=== PATIENT | female | born 1990 | race Two or more races ===

== ENCOUNTER 2023-09-15 13:56 | Emergency (ER) | payer SELFPAY ==
--- NOTE | ~2023-09-15 | US_ITS ---
EXAMINATION: US OBSTETRICAL ULTRASOUND CLINICAL INFORMATION: Abdominal pain; positive test; question ectopic . COMPARISON: None available. LMP: Uncertain. Gestational age by maternal dates is uncertain. Estimated date of delivery by maternal dates is uncertain. TECHNIQUE: Ultrasound of the maternal pelvis is performed using transabdominal and transvaginal transducers. Transvaginal imaging is performed due to inadequate visualization transabdominally. M-mode Doppler is also performed. FINDINGS: There is a single intrauterine gestational sac with visible yolk sac, embryo/fetus, and cardiac activity. There is no significant subchorionic hemorrhage or hematoma. HR: 134 beats per minute. CRL (crown rump length): 0.72 cm (6 weeks and 5 days +/- 4 days). ASHLEY (estimated date of delivery): 05/05/2024 +/- 4 days. MATERNAL ADNEXA: The right maternal ovary measures 3.0 x 2.0 x 2.7 cm. The right ovary contains a 1.8 x 1.9 x 1.8 cm resorbing corpus luteum cyst. The left maternal ovary measures 2.4 x 1.5 x 1.4 cm. There is no significant maternal adnexal mass. No maternal pelvic ascites. US/US OB pelvic and transvaginal IMPRESSION: 1. Single intrauterine gestation with ultrasound gestational age of 6 weeks and 5 days +/- 4 days. 2. Estimated date of delivery is 05/05/2024 +/- 4 days. 3. No maternal adnexal mass or pelvic ascites.
[2023-09-15 14:23] VITALS: BP 124/65; PULSE 121; RESP 18; TEMP 36.8; O2SAT 100; BMI 21.6
--- NOTE | 2023-09-15 14:25 | ED_ITS ---
HPI - General Adult General Chief complaint: OB Stated complaint: abd pain Time Seen by Provider: 09/15/23 15:53 Source: patient, RN notes reviewed and old records reviewed Mode of arrival: ambulatory History of Present Illness HPI narrative: 33-year-old female with positive home test 2 days ago presenting to the ED complaining of lower abdominal discomfort and nausea. Patient states she is inquiring about how far along she is, LMP in July, states she is irregular. Also reports white/clear vaginal discharge. Denies vomiting, diarrhea, vaginal bleeding, dysuria/hematuria, flank pain. Patient denies concern for STI. Is sexually active w/ male partner Onset (ago): day(s) Related Data Allergies Allergy/AdvReac Type Severity Reaction Status Date / Time No Known Allergies Allergy Verified 09/15/23 14:26 Review of Systems 2 Review of Systems: Constitutional: No Fever, No Chills ENT/Mouth: No Ear Pain, No Nasal Congestion, No Sinus Pain, No Hoarseness, No sore throat, No Rhinorrhea, No Swallowing Difficulty Cardiovascular: No Chest Pain, No SOB Respiratory: No Cough, No Sputum, No Wheezing Gastrointestinal: +Nausea, No Vomiting, No Diarrhea, No Constipation, +Abdominal pain Genitourinary: No Dysuria, No Urinary Frequency, No Hematuria, No Urgency, No Flank Pain, + vaginal bleeding, no vaginal discharge Musculoskeletal: No joint pain, No Myalgias, No Joint Swelling Skin: No Skin Lesions, No rash Neuro: No Weakness Yes all other systems are reviewed and are negative Constitutional: Constitutional: Reports as per [facility] Past Medical History Attestation statement: The following information was validated with the patient. Source: old records reviewed Social History Social History Advance Directives: No Advance Directives Information Provided: Yes Physical Exam ED Vital Signs: Vital Signs - 24 hr 09/15/23 14:23 Temperature 98.2 F Pulse Rate 121 H Respiratory Rate 18 Blood Pressure 124/65 Pulse Oximetry 100 Oxygen Delivery Method Room Air BMI result Body Mass Index 21.6 Const General: cooperative, healthy appearing and no acute distress Orientation/consciousness: patient oriented x3 Limitations: no limitations HENMT Head: Yes normal to inspection and Yes atraumatic Ears: hearing grossly normal bilaterally General nose exam: Normal external nose present Face and sinus: Yes normal facial exam Eyes General: appearance normal, both eyes and all related structures EOM: EOMs intact bilaterally Neck Neck: Yes normal visual inspection and Yes no meningeal signs Resp Effort & Inspection: normal respiratory effort and no respiratory distress Cardio Rate: regular rate GI Inspection: Yes normal to inspection Palpation (GI): Soft to palpation, Tenderness to palpation present (GI) suprapubicly, no guarding and not rigid Other: exam deferred General: Yes no CVA tenderness Back/Spine/Pelvis Back: no CVA tenderness Skin Rashes: no rashes Wounds: no wounds Neuro General: patient oriented x3, tone normal and no meningeal signs Cranial nerves: Yes CN's II-XII intact bilaterally Gait exam (Neuro): Normal gait present Extrem General: Yes normal to inspection Course Course Course Narrative: This is a rapid medical exam: Additional HPI, ROS, PE not included below will be deferred to primary provider. Patient is a 33-year-old Kosovan-speaking female presenting to the emergency department with complaint of lower abdominal pain and nausea. States she took a test two days ago which was positive. She states that she does not wish to proceed with the is wishes to have an . Denies any abnormal vaginal discharge. Has not seen an [employer]. Plan: UA, labs, U/S -1557--labs reassuring. HCG 49,479 -UA negative 1642--US OB pelvic and transvaginal IMPRESSION: 1. Single intrauterine gestation with ultrasound gestational age of 6 weeks and 5 days +/- 4 days. 2. Estimated date of delivery is 05/05/2024 +/- 4 days. 3. No maternal adnexal mass or pelvic ascites. Results discussed with patient including threatened precautions, recommended repeat HCG in 48 hours. Patient was supplied with lab slip. Worrisome signs and symptoms and strict return precautions, and when to return to the emergency department. They verbalized understanding and feel safe for discharge at this time. Medical Decision Making Medical Decision Making [facility] Narrative: 33-year-old female with positive home test 2 days ago presenting to the ED complaining of lower abdominal discomfort and nausea. On exam tachycardic, NAD, nontoxic appearing, abdomen soft with mild suprapubic tenderness, no CVAT. exam deferred by patient, states she will follow-up with her OBGYN. Concern for early vs ectopic vs threatened vs STI. Lower suspicion for ovarian torsion Plan: Labs, UA, pelvic ultrasound Please refer to course for remaining clinical decision making, interpretation of labs/imaging results, and discussions with consultants and/or family members. Differential Diagnosis Differential Diagnoses: The differential diagnosis associated with the presentation includes As above Lab Data MDM Lab Attestation statement: I reviewed the patient's lab results. 09/15/23 14:42 09/15/23 14:42 Labs: Lab Results 09/15/23 Range/Units 14:42 WBC 7.8 (4.8-10.8) X10*3/uL RBC 3.78 L (4.20-5.50) X10*6/uL Hgb 12.0 (12.0-16.0) g/dl Hct 34.9 L (37.0-47.0) % MCV 92.3 (80.0-98.0) fL MCH 31.7 (27.0-33.0) pg MCHC 34.4 (31.0-35.0) g/dl RDW 12.9 (11.0-16.0) % Plt Count 233 (160-400) X10*3/uL MPV 9.3 L (9.4-12.3) fL Immature Gran % (Auto) 0.3 (0.0-0.4) % Neut % (Auto) 61.6 (45-73) % Lymph % (Auto) 31.2 (20-40) % [place] % (Auto) 6.0 (2-11) % Eos % (Auto) 0.4 (0-4) % Baso % (Auto) 0.5 (0-2) % Lymph # (Auto) 2.4 (1.2-4.9) X10*3/uL [place] # (Auto) 0.5 (0.1-1.2) X10*3/uL Eos # (Auto) 0.0 (0.0-0.4) X10*3/uL Baso # (Auto) 0.0 (0.0-0.2) X10*3/uL Abs Immat Gran (auto) 0.02 (0.00-0.03) X10*3/uL Absolute Neuts (auto) 4.8 (2.0-8.3) x10*3/uL Absolute Nucleated RBC 0.000 (0.0-0.012) X10*3/uL Nucleated RBC % (auto) 0.0 (0.0-0.2) /100WBC Sodium 138 (135-145) mmol/L Potassium 4.3 (3.3-5.1) mmol/L Chloride 110 H (96-108) mmol/L Carbon Dioxide 19 L (22-29) mmol/L Anion Gap 13 (12-20) BUN 14 (9-16) mg/dL Creatinine 0.72 (0.5-1.4) mg/dL Estim Creat Clear Calc 100.9 Estimated GFR > 60 Random Glucose 83 (60-115) mg/dL Calcium 10.0 (8.4-10.2) mg/dL Total Bilirubin 0.5 (0.0-1.0) mg/dL AST 16 (5-31) U/L ALT 11 (0-31) U/L Alkaline Phosphatase 43 (39-117) U/L Total Protein 7.5 (6.5-8.0) g/dL Albumin 4.3 (3.5-5.0) g/dL Beta HCG, Quant 55135 mIU/mL Urine Color Yellow Urine Appearance Clear Urine pH 5.0 (5.0-9.0) Ur Specific [place] >= 1.030 H (1.005-1.025) Urine Protein Negative (Neg-Trace) mg/dL Urine Glucose (UA) Negative (Negative) mg/dL Urine Ketones Negative (Negative) mg/dL Urine Blood Negative (Negative) Urine Nitrite Negative (Negative) Ur Leukocyte Esterase Negative (Negative) Radiology Impression Discussion of test interpretation with radiology: I have reviewed the radiologist's reading. External Record Review External record reviewed: Inpatient record, Office record, Outpatient record, Prior outpatient labs, Prior outpatient radiology, Primary care record and Outside ED record Tests considered The following testing was considered but not selected: As above Discharge Plan Discharge Clinical Impression: Abdominal pain in , Early stage of Patient Disposition: Home, Self-Care Instructions: (ED), Abdominal Pain in (ED) Additional Instructions: Your blood work was reassuring. Her beta quant is 49,000, and with your ultrasound is consistent with about 6 weeks gestation. It is important for you to establish care with an OBGYN. Start taking vitamins You should have repeat blood work in 48 hours due to your abdominal pain. [facility] If symptoms persist or worsening of constant unremitting pain, vaginal bleeding/discharge, persistent nausea/vomiting return to the ED Referrals: [facility] [Provider Group] - 2 days [facility] [Outside]
[2023-09-15 14:47] LABS: MANUAL DIFF FLAG NO
[2023-09-15 14:48] LABS: Basophils Percent Auto 0.5 % (0-2); Eosinophils Percent Auto 0.4 % (0-4); Hematocrit 34.9 % (37.0-47.0); Imm Gran Abs Auto 0.02 X10*3/uL (0.00-0.03); Imm Gran Pct Auto 0.3 % (0.0-0.4); Lymphocytes Absolute Auto 2.4 X10*3/uL (1.2-4.9); Lymphocytes Percent Auto 31.2 % (20-40); Mean Corpuscular HGB Conc 34.4 g/dl (31.0-35.0); Mean Corpuscular Hemoglobin 31.7 pg (27.0-33.0); Mean Corpuscular Volume 92.3 fL (80.0-98.0); Mean Platelet Volume 9.3 fL (9.4-12.3); Monocytes Absolute Auto 0.5 X10*3/uL (0.1-1.2); Neutrophils Absolute Auto 4.8 x10*3/uL (2.0-8.3); Neutrophils Percent Auto 61.6 % (45-73); Platelet Count 233 X10*3/uL (160-400); Red Blood Count 3.78 X10*6/uL (4.20-5.50); Red Cell Distribution Width 12.9 % (11.0-16.0); White Blood Count 7.8 X10*3/uL (4.8-10.8)
[2023-09-15 14:51] LABS: Appearance Urine Clear; Color Urine Yellow; Glucose Urine UA Negative (Negative); Leukocyte Esterase Urine Negative (Negative); Nitrite Urine Negative (Negative); Specific Gravity - Urine >= 1.030 (1.005-1.025); Urine Blood Negative (Negative); Urine Ketones Negative (Negative); Urine Protein Negative (Neg-Trace)
[2023-09-15 15:22] LABS: Alanine Aminotransferase 11 U/L (0-31); Albumin Level 4.3 g/dL (3.5-5.0); Alkaline Phosphatase 43 U/L (39-117); Anion Gap 13 (12-20); Aspartate Amino Transferase 16 U/L (5-31); Bilirubin Total 0.5 mg/dL (0.0-1.0); Blood Urea Nitrogen 14 mg/dL (9-16); Carbon Dioxide 19 mmol/L (22-29); Chloride 110 mmol/L (96-108); Creatinine Clr Calc Pharmacy 100.9; Estimated Glomerular Filt Rate > 60; Glucose Random 83 mg/dL (60-115); Potassium 4.3 mmol/L (3.3-5.1); Sodium 138 mmol/L (135-145); Total Protein 7.5 g/dL (6.5-8.0)
[2023-09-15 15:43] LABS: HCG Quantitative 49479 mIU/mL
[2023-09-15 16:45] VITALS: PULSE 109; RESP 14
== END 2023-09-15 17:03 | disposition home or self-care (01) ==
PROVIDERS: Registered Nurse Emergency; Emergency Provider Internal Medicine
DX: O26.891 Other specified pregnancy related conditions, first trimester (principal); R10.30 Lower abdominal pain, unspecified; Z3A.01 Less than 8 weeks gestation of pregnancy
CPT/HCPCS: 36415; 76801; 76817; 80053; 81003; 84702; 85025; 99283

== ENCOUNTER 2024-07-07 10:50 | Emergency (ER) | payer MEDICAID, SELFPAY ==
--- NOTE | ~2024-07-07 | US_ITS ---
EXAMINATION: US OBSTETRICAL ULTRASOUND CLINICAL INFORMATION: Pain. Early . HCG 2966. COMPARISON: 09/15/2023 LMP: 05/30/2024. Gestational age by maternal dates is 5 weeks 3 days. Estimated date of delivery by maternal dates is 03/06/2025. TECHNIQUE: Ultrasound of the maternal pelvis is performed using transabdominal and transvaginal transducers. Transvaginal imaging is performed due to inadequate visualization transabdominally. M-mode Doppler is also performed. FINDINGS: The uterus is anteverted. Uterine echotexture is heterogeneous. There is a single cystic lesion eccentrically located within the endometrium with surrounding decidual reaction. No yolk sac or pole is identified. Mean sac diameter is 0.36 cm consistent with gestational age of 4 weeks 6 days. MATERNAL ADNEXA: The right maternal ovary measures 5.9 x 4.1 x 5.3 cm. Complex cyst measures 5.1 x 4.0 x 4.5 cm. The left maternal ovary measures 2.8 x 0.8 x 2.3 cm. Small free fluid in the pelvis. US/US OB pelvic and transvaginal IMPRESSION: 1. Single intrauterine gestational sac with ultrasound gestational age of 4 weeks 6 days +/- 4 days. Mean sac diameter greater than 25 mm with absent pole is suspicious for failure.
[2024-07-07 11:12] VITALS: BP 121/71; PULSE 83; RESP 17; TEMP 36.3; O2SAT 100; BMI 25.3
--- NOTE | 2024-07-07 11:17 | ED_ITS ---
HPI - General Adult General Chief complaint: Abdominal Pain Stated complaint: abd pain Time Seen by Provider: 07/07/24 11:41 Source: patient Mode of arrival: ambulatory Limitations: no limitations History of Present Illness ED Provider: Jatin Cisse PA-C HPI narrative: 33-year-old female presents to the ER for evaluation of lower abdominal pain, nausea, breast tenderness and dizziness for the last 3 days. She states she is 8 days late for her menstrual cycle. She also reports she has been having some white and yellow vaginal discharge and is concerned about an infection. She denies any vaginal bleeding. She states the lower abdominal pain is cramping in nature and is present when she is angry. She reports having a miscarriage 9 or 10 months ago. That is her only . Her last menstrual cycle was on May 30. She states she stopped her last Depo shots in December in her menstrual cycles have been irregular since then. Her cycle ranges anywhere from 25 to 31 days long. MD complaint: Abdominal pain, vaginal discharge, missed Onset (ago): day(s) (3) Relieving factors: none Exacerbating factors: none Associated symptoms: denies other symptoms Treatments prior to arrival: none Related Data Previous Rx's ?Medication ?Instructions ?Recorded vitamin-ferrous fumarate 1 tab PO DAILY #30 tabs 07/07/24 28 mg iron-folic acid 800 mcg tablet Allergies Allergy/AdvReac Type Severity Reaction Status Date / Time No Known Allergies Allergy Verified 07/07/24 11:18 Review of Systems 2 Review of Systems: Yes all other systems are reviewed and are negative [facility] Social History Social History Advance Directives: No Advance Directives Information Provided: No Do you have a plan to hurt others: No Plan Physical Exam ED Vital Signs: Vital Signs - 24 hr 07/07/24 11:12 07/07/24 14:53 Temperature 97.4 F 98.2 F Pulse Rate 83 88 Respiratory Rate 17 18 Blood Pressure 121/71 125/66 Pulse Oximetry 100 100 Oxygen Delivery Method Room Air Room Air BMI result Body Mass Index 25.3 Appearance: Alert. Oriented X3. No acute distress. Head: normocephalic, atraumatic. Eyes: Pupils equal, round and reactive to light. ENT: Pharynx normal. No tonsillar swelling or exudate. Neck: Normal inspection. Neck supple. CVS: Normal heart rate and rhythm. Pulses normal. Respiratory: No respiratory distress. Breath sounds normal. Abdomen: Soft and nontender. +BS x4 Pelvic: white vaginal discharge at vaginal introitus. vaginal exam w/ moderate amount of white discharge. cervix is closed. no bleeding. no CMT. Skin: Skin warm and dry. Normal skin color. Normal skin turgor. No rashes. Extremities: No lower extremity edema. No joint swelling. Neuro/psych: Oriented X 3. No motor deficit. No sensory deficit. CN II-XII intact. Normal speech and cognition. Course Course Course Narrative: RME performed by Meghna Mac PA-C. Patient is a 33 year old assigned female at presenting to the emergency department with yellow-mac vaginal discharge. Patient states that she is concerned of a vaginal infection because she has been having mild discomfort with yellow-mac drainage. Patient states that she is also wanting to be tested for . Also complaining of a headache and feeling generally unwell. Detailed physical exam and review of systems are deferred to the billing clinician. Labs and swabs ordered. Patient placed back in the waiting room pending room availability and results. Medical Decision Making Medical Decision Making MDM Narrative: 33-year-old female presents to the ER for evaluation of nausea, lower abdominal cramping, dizziness and breast tenderness after she is 8 days late for her menstrual cycle. Urinalysis is positive for . Beta quant was 2966. Pelvic exam showing a closed cervix with moderate amount of white discharge. She tested negative for gonorrhea, chlamydia, yeast, BV, Trichomonas. No need for antibiotics at this time. Ultrasound is showing a 3.6 mm gestational sac with no yolk sac or pole. Initial ultrasound reading had in the impression that a gestational sac >25mm without a pole was suspicious for failure however it was confirmed that her gestational sac is only 3.6 mm at this time after discussion with the radiologist. Case also discussed with Dr. Rosario. She will need repeat ultrasound in 2 weeks. instructor bridge was used to discuss the results and management as well as return precautions including spontaneous precautions. Patient expressed understanding and all questions were answered. Patient stable for discharge home with outpatient follow-up with OBGYN Differential Diagnosis Differential Diagnoses: The differential diagnosis associated with the presentation includes Early , missed , spontaneous , BV, STI Consult Healthcare Provider Management of the patient was discussed with: Customer Service Assistant Dr. Rosario Lab Data MDM Lab Attestation statement: I reviewed the patient's lab results. Mild anemia, normal renal function, elevated test consistent with early 07/07/24 12:09 07/07/24 12:09 Labs: Lab Results 07/07/24 07/07/24 07/07/24 Range/Units 11:32 12:09 14:09 WBC 5.7 (4.8-10.8) X10*3/uL RBC 3.80 L (4.20-5.50) X10*6/uL Hgb 12.3 (12.0-16.0) g/dl Hct 35.2 L (37.0-47.0) % MCV 92.6 (80.0-98.0) fL MCH 32.4 (27.0-33.0) pg MCHC 34.9 (31.0-35.0) g/dl RDW 13.3 (11.0-16.0) % Plt Count 221 (160-400) X10*3/uL MPV 9.4 (9.4-12.3) fL Immature Gran % (Auto) 0.3 (0.0-0.4) % Neut % (Auto) 56.0 (45-73) % Lymph % (Auto) 35.8 (20-40) % [place] % (Auto) 6.1 (2-11) % Eos % (Auto) 0.9 (0-4) % Baso % (Auto) 0.9 (0-2) % Lymph # (Auto) 2.1 (1.2-4.9) X10*3/uL [place] # (Auto) 0.4 (0.1-1.2) X10*3/uL Eos # (Auto) 0.1 (0.0-0.4) X10*3/uL Baso # (Auto) 0.1 (0.0-0.2) X10*3/uL Abs Immat Gran (auto) 0.02 (0.00-0.03) X10*3/uL Absolute Neuts (auto) 3.2 (2.0-8.3) x10*3/uL Absolute Nucleated RBC 0.000 (0.0-0.012) X10*3/uL Nucleated RBC % (auto) 0.0 (0.0-0.2) /100WBC Sodium 138 (135-145) mmol/L Potassium 4.3 (3.3-5.1) mmol/L Chloride 109 H (96-108) mmol/L Carbon Dioxide 23 (22-29) mmol/L Anion Gap 10 L (12-20) BUN 9 (9-16) mg/dL Creatinine 0.78 (0.5-1.4) mg/dL Estim Creat Clear Calc 101.0 Estimated GFR > 60 Random Glucose 94 (60-115) mg/dL Calcium 9.2 D (8.4-10.2) mg/dL Magnesium 2.0 (1.6-2.6) mg/dL Total Bilirubin 0.6 (0.0-1.0) mg/dL Direct Bilirubin 0.2 (0.0-0.5) mg/dL AST 15 (5-31) U/L ALT 12 (0-31) U/L Alkaline Phosphatase 47 (39-117) U/L Total Protein 7.1 (6.5-8.0) g/dL Albumin 4.1 (3.5-5.0) g/dL Beta HCG, Quant 2966 mIU/mL Urine Color Yellow Urine Appearance Clear Urine pH 6.5 (5.0-9.0) Ur Specific [place] 1.020 (1.005-1.025) Urine Protein Negative (Neg-Trace) mg/dL Urine Glucose (UA) Negative (Negative) mg/dL Urine Ketones 80 (Negative) mg/dL Urine Blood Negative (Negative) Urine Nitrite Negative (Negative) Ur Leukocyte Esterase Negative (Negative) Urine Test POSITIVE H (NEGATIVE) Chlam trachomat DNA PCR NOT DETECTED (Not Detect.) Influenza Type A (PCR) NEGATIVE (Negative) Influenza Type B (PCR) NEGATIVE (Negative) N.gonorrhoeae DNA (PCR) NOT DETECTED (Not Detect.) RSV RNA Qual (PCR) NEGATIVE (Negative) SARS-CoV-2 RNA (RT-PCR) NEGATIVE (Negative) T. vaginalis (PCR) NOT DETECTED (Not Detect) Bact Vaginosis (PCR) NEGATIVE (Negative) C. krusei/glabrata (PCR) NOT DETECTED (Not Detect) Lucy group (PCR) NOT DETECTED (Not Detect) Independent Interpretation I performed an independent interpretation of an: Ultrasound Interpretation: Ultrasound with a gestational sac, no pole or heart tone was appreciated, agree with radiology read Radiology Impression Discussion of test interpretation with radiology: I discussed test interpretation with the radiologist and I have reviewed the radiologist's reading. Radiologist Impression: ADDENDUMMean sac diameter of 3.6 mm is likely field representative/health education of an early . No yolk sac seen at this time. Clinical follow-up is recommended. Findings were reviewed and discussed with ELLIOTT Sood at 4:25 PM on 07/07/2024. TD/TT: / EXAMINATION: US OBSTETRICAL ULTRASOUND CLINICAL INFORMATION: Pain. Early . HCG 2966. COMPARISON: 09/15/2023 LMP: 05/30/2024. Gestational age by maternal dates is 5 weeks 3 days. Estimated date of delivery by maternal dates is 03/06/2025. TECHNIQUE: Ultrasound of the maternal pelvis is performed using transabdominal and transvaginal transducers. Transvaginal imaging is performed due to inadequate visualization transabdominally. M-mode Doppler is also performed. FINDINGS: The uterus is anteverted. Uterine echotexture is heterogeneous. There is a single cystic lesion eccentrically located within the endometrium with surrounding decidual reaction. No yolk sac or pole is identified. Mean sac diameter is 0.36 cm consistent with gestational age of 4 weeks 6 days. MATERNAL ADNEXA: The right maternal ovary measures 5.9 x 4.1 x 5.3 cm. Complex cyst measures 5.1 x 4.0 x 4.5 cm. The left maternal ovary measures 2.8 x 0.8 x 2.3 cm. Small free fluid in the pelvis. US/US OB pelvic and transvaginal IMPRESSION: 1. Single intrauterine gestational sac with ultrasound gestational age of 4 weeks 6 days +/- 4 days. Mean sac diameter greater than 25 mm with absent pole is suspicious for failure. Independent Historian Clinical information obtained from an independent historian. History obtained from or confirmed by: Spouse External Record Review External record reviewed: Prior outpatient labs and Prior outpatient radiology Prescription Management I considered prescription management with: Antibiotic Social Determinants Patient?s care significantly limited by Social Determinants of Health including: Other Social Determinant of Health (no OB care) Critical Care Time Critical Care Time Critical Care Time: No Discharge Plan Discharge Clinical Impression: Qualifiers: Weeks of gestation: less than 8 weeks Qualified Code(s): Z3A.01 - Less than 8 weeks gestation of Patient Disposition: Home, Self-Care Instructions: (ED) Additional Instructions: You were found to be today. Your ultrasound is showing very early stage of . You will need to get repeat ultrasound in 2 weeks. You tested negative for gonorrhea, chlamydia, Trichomonas, bacterial vaginosis and yeast Given your pain & cramping there is a chance of possible miscarriage Monitor for worsening pain or development of significant bleeding Recommend following up with OBGYN for repeat ultrasound. Name and number below. Call for an appointment. Start taking vitamins. They were sent to your pharmacy in [place]. If you develop new or worsening symptoms call 911 or come back to the ER for further evaluation. Prescriptions: New vit-iron fum-folic ac 28 mg iron- 800 mcg tablet 1 tab PO DAILY Qty: 30 0RF Referrals: Denis Rosario MD [Physician] - (early ) Print Language: Martiniquais
[2024-07-07 11:47] LABS: UPreg QC Valid YES; Urine Pregnancy POSITIVE (NEGATIVE)
[2024-07-07 11:50] LABS: Appearance Urine Clear; Color Urine Yellow; Glucose Urine UA Negative (Negative); Leukocyte Esterase Urine Negative (Negative); Nitrite Urine Negative (Negative); PH 6.5 (5.0-9.0); Urine Blood Negative (Negative); Urine Ketones 80 mg/dL (Negative); Urine Protein Negative (Neg-Trace)
[2024-07-07 12:16] LABS: MANUAL DIFF FLAG NO
[2024-07-07 12:17] LABS: Basophils Absolute Auto 0.1 X10*3/uL (0.0-0.2); Basophils Percent Auto 0.9 % (0-2); Eosinophils Absolute Auto 0.1 X10*3/uL (0.0-0.4); Eosinophils Percent Auto 0.9 % (0-4); Hematocrit 35.2 % (37.0-47.0); Hemoglobin 12.3 g/dl (12.0-16.0); Imm Gran Abs Auto 0.02 X10*3/uL (0.00-0.03); Imm Gran Pct Auto 0.3 % (0.0-0.4); Lymphocytes Absolute Auto 2.1 X10*3/uL (1.2-4.9); Lymphocytes Percent Auto 35.8 % (20-40); Mean Corpuscular HGB Conc 34.9 g/dl (31.0-35.0); Mean Corpuscular Hemoglobin 32.4 pg (27.0-33.0); Mean Corpuscular Volume 92.6 fL (80.0-98.0); Mean Platelet Volume 9.4 fL (9.4-12.3); Monocytes Absolute Auto 0.4 X10*3/uL (0.1-1.2); Monocytes Percent Auto 6.1 % (2-11); Neutrophils Absolute Auto 3.2 x10*3/uL (2.0-8.3); Platelet Count 221 X10*3/uL (160-400); Red Cell Distribution Width 13.3 % (11.0-16.0); White Blood Count 5.7 X10*3/uL (4.8-10.8)
[2024-07-07 12:39] LABS: Alanine Aminotransferase 12 U/L (0-31); Albumin Level 4.1 g/dL (3.5-5.0); Alkaline Phosphatase 47 U/L (39-117); Anion Gap 10 (12-20); Aspartate Amino Transferase 15 U/L (5-31); Bilirubin Direct 0.2 mg/dL (0.0-0.5); Bilirubin Total 0.6 mg/dL (0.0-1.0); Blood Urea Nitrogen 9 mg/dL (9-16); Calcium 9.2 mg/dL (8.4-10.2); Carbon Dioxide 23 mmol/L (22-29); Chloride 109 mmol/L (96-108); Estimated Glomerular Filt Rate > 60; Glucose Random 94 mg/dL (60-115); HCG Quantitative 2966 mIU/mL; Potassium 4.3 mmol/L (3.3-5.1); Sodium 138 mmol/L (135-145); Total Protein 7.1 g/dL (6.5-8.0)
[2024-07-07 12:42] LABS: Influenza A PCR NEGATIVE (Negative); Influenza B PCR NEGATIVE (Negative); Resp Syncy Virus RNA Qual PCR NEGATIVE (Negative); SARS COV2 PCR INHOUSE NEGATIVE (Negative)
[2024-07-07 13:16] LABS: CT PCR NOT DETECTED (Not Detect.); NG PCR NOT DETECTED (Not Detect.)
[2024-07-07 14:53] VITALS: BP 125/66; PULSE 88; RESP 18; TEMP 36.8; O2SAT 100
[2024-07-07 15:49] LABS: Bacterial Vaginosis PCR NEGATIVE (Negative); Candida Group PCR NOT DETECTED (Not Detect); Candida glab krusei PCR NOT DETECTED (Not Detect); Trichomonas vaginalis PCR NOT DETECTED (Not Detect)
--- NOTE | 2024-07-07 16:28 | P.CONOB_ITS ---
DARKLIGHT INSPECTOR - CN: HPI Data of Consult Consult date: 07/07/24 Primary Care Provider: None Physician Consult Narrative Narrative: I was consulted on Alona Manning who is a 33 year old female presenting to the ER complaining of lower abdominal cramps last 3 days. LMP 05/30/2024 making her by to date at 5 and 3 days of gestation. She denies any vaginal bleeding. HCG done in the emergency room was 2966 cc:: CC: OB [facility] Social History Social History Advance Directives: No Advance Directives Information Provided: No Do you have a plan to hurt others: No Plan Meds Allergies Allergy/AdvReac Type Severity Reaction Status Date / Time No Known Allergies Allergy Verified 07/07/24 11:18 DARKLIGHT INSPECTOR Physical Exam Vitals Vital signs: Temp Pulse Resp BP Pulse Ox O2 Del Method 98.2 F 88 18 125/66 100 Room Air 07/07/24 14:53 07/07/24 14:53 07/07/24 14:53 07/07/24 14:53 07/07/24 14:53 07/07/24 14:53 BMI result Body Mass Index 25.3 Additional Comments: Physical exam reported by Sood PA as the following: Abdomen: Soft and nontender. +BS x4 Pelvic: white vaginal discharge at vaginal introitus. vaginal exam w/ moderate amount of white discharge. cervix is closed. no bleeding. no CMT. DARKLIGHT INSPECTOR - Results Labs 07/07/24 12:09 07/07/24 12:09 Labs: Short CBC 07/07/24 Range/Units 12:09 WBC 5.7 (4.8-10.8) X10*3/uL Hgb 12.3 (12.0-16.0) g/dl Hct 35.2 L (37.0-47.0) % Plt Count 221 (160-400) X10*3/uL BMP 07/07/24 12:09 Sodium 138 Potassium 4.3 Chloride 109 H Carbon Dioxide 23 BUN 9 Creatinine 0.78 Calcium 9.2 D Liver Function 07/07/24 Range/Units 12:09 Total Bilirubin 0.6 (0.0-1.0) mg/dL Direct Bilirubin 0.2 (0.0-0.5) mg/dL AST 15 (5-31) U/L ALT 12 (0-31) U/L Alkaline Phosphatase 47 (39-117) U/L Albumin 4.1 (3.5-5.0) g/dL Urine 07/07/24 Range/Units 11:32 Urine Color Yellow Urine Appearance Clear Urine pH 6.5 (5.0-9.0) Ur Specific [place] 1.020 (1.005-1.025) Urine Protein Negative (Neg-Trace) mg/dL Urine Glucose (UA) Negative (Negative) mg/dL Urine Test POSITIVE H (NEGATIVE) Assessment and Plan (1) Early stage of : Status: Inactive Since the mean gestational sac diameter is 3.6 mm with no pole, I recommended the following: Repeat ultrasound in 2 weeks with a follow-up appointment. SAB warnings to be given to the patient, instructions to be given to patient to call or go to emergency room in case of vaginal bleeding and or pelvic cramping, vitamin 1 tablet p.o. q.d. and to schedule a follow-up in the office in 2 weeks with a repeat ultrasound prior to the appointment, order placed. I spent a total of 20 minutes reviewing the chart, communicating to the emergency room provider and documenting in the medical record
[2024-07-07 16:59] VITALS: BP 106/59; PULSE 73; RESP 16; TEMP 36.8; O2SAT 100
[2024-07-07 17:10] VITALS: BP 106/59; PULSE 73; RESP 16; TEMP 36.8; O2SAT 100
== END 2024-07-07 17:10 | disposition home or self-care (01) ==
PROVIDERS: Physician Assistant; Physician Assistant Medical; Emergency Provider Emergency Medicine Emergency Medical Services
DX: O26.91 Pregnancy related conditions, unspecified, first trimester (principal); R10.2 Pelvic and perineal pain; R11.0 Nausea; R42 Dizziness and giddiness; Z3A.01 Less than 8 weeks gestation of pregnancy; Z03.818 Encounter for observation for suspected exposure to other biological agents ruled out; Z79.899 Other long term (current) drug therapy
CPT/HCPCS: 0241U; 0352U; 36415; 76801; 76817; 80048; 80076; 81003; 81025; 83735; 84702; 85025; 87491; 87591; 99283; 99284

== ENCOUNTER 2024-07-14 15:42 | Outpatient (AMB) | payer MEDICAID, SELFPAY ==
[2024-07-14 15:45] VITALS: BP 114/66; BMI 25.3
--- NOTE | 2024-07-14 15:45 | MHC.OFFVIS ---
Vital Signs 07/14/24 15:45 Height 5 ft 5 in Weight 152 lb 1.903 oz BMI 25.3 BP 114/66 Intake Visit Reasons: ER follow up Tennis Centre Manager Required: Yes Tennis Centre Manager Language: Tripe Washer Services: Tennis Centre Manager Present (in person) Tennis Centre Manager Name: Jenni PAGE Information Interpreted: non-clinical & clinical Shipping Team Leader: Shipping Team Leader Present (Jenni PAGE) Accompanied by: Spouse Allergies No Known Allergies Allergy (Verified 07/14/24 15:53) Patient : Yes HPI Comments Details: The patient is presenting as a follow-up from ER visit on 07/07 when she presented emergency room complaining of lower abdominal cramps of 3 days' duration. LMP 05/30/2024 making her by to date at 6 and 1 days of gestation. The patient is complaining of pelvic cramping /10 on and off over the last few days with no associated vaginal bleeding H&H was 12.3/35.2 HCG 2966 GC/CT with BV panel negative, Trichomonas negative Pelvic ultrasound showed the following: The uterus is anteverted. Uterine echotexture is heterogeneous. There is a single cystic lesion eccentrically located within the endometrium with surrounding decidual reaction. No yolk sac or pole is identified. Mean sac diameter is 0.36 cm consistent with gestational age of 4 weeks 6 days. MATERNAL ADNEXA: The right maternal ovary measures 5.9 x 4.1 x 5.3 cm. Complex cyst measures 5.1 x 4.0 x 4.5 cm. The left maternal ovary measures 2.8 x 0.8 x 2.3 cm. Small free fluid in the pelvis. FOR[facility]LY [facility] Medical History Heart murmur Family History (Updated 07/14/24 @ 15:55 by Jenni Villavicencio CMA) Father HTN (hypertension) Maternal Grandmother Diabetes Brother Asthma Social History Household Members: Spouse Household Members Other:: stepdaughter Housing: Apartment Alcohol intake: current Alcohol intake frequency: holidays/special occasions only Patient Tobacco Use Status: Former Tobacco user Tobacco use type: Cigarette Current occupational status: unemployed Sexual orientation: Straight/Heterosexual Gender identity: Female Female Reproductive History Menstrual Age of Menarche: 14 Date of last menstrual period: 05/31/24 control method: none Total pregnancies: 1 Review of Systems Const All systems reviewed & are unremarkable except as noted in HPI and below Reports as per HPI and Reports no additional complaints GI Reports no additional complaints Reports no additional complaints Physical Exam Vital Signs: BMI result Body Mass Index 25.3 GI Palpation (GI): Soft to palpation, nontender and no guarding Assessment & Plan Assessment & Plan (1) Early stage of : Code(s): Z34.90 - Encounter for supervision of normal , unspecified, unspecified trimester Category: Medical Plan: Discussed with the patient the differential diagnosis of her symptoms including but not limited to ectopic versus SAB. Also explained to the patient that an empty gestational sac could be a pseudo sac which is associated with possible ectopic . Instructions given the patient to go to emergency room stefano to be evaluated to rule out ectopic . All questions answered, the patient verbalized understanding especially the urgency of her clinical situation and agreed with the plan Coding Level of Care Code Est Pt Level 3 (43431) Diagnoses Early stage of Z34.90
== END 2024-07-14 16:27 | disposition home or self-care (01) ==
LOC: HO.HWS 15:42
PROVIDERS: Visit Provider Obstetrics & Gynecology
DX: Z34.90 Encounter for supervision of normal pregnancy, unspecified, unspecified trimester (principal)
CPT/HCPCS: 99213

== ENCOUNTER → 2024-07-14 15:42 | Outpatient (BNVA) | payer MEDICAID, SELFPAY | PROVIDERS: Visit Provider Obstetrics & Gynecology | DX: Z34.91 Encounter for supervision of normal pregnancy, unspecified, first trimester (principal) | CPT/HCPCS: 99212 ==

== ENCOUNTER 2024-10-27 10:45 | Outpatient (AMB) | payer OTHER, SELFPAY ==
--- NOTE | 2024-10-27 11:01 | A.OFFPC_ITS ---
Vital Signs 10/27/24 11:14 Height 5 ft 3.98 in Weight 157 lb 2 oz BMI 27.0 BP 108/62 Blood Pressure Location Lt brachial Position Sitting Pulse 85 Pulse Source Pulse Oximeter Pulse Oximetry (%) 99 Oxygen Delivery Method Room Air Intake Visit Reasons: TAX RECORD CLERK/ Intake Note: New patient visit Drum Operator Required: Yes Drum Operator Language: Tristanian Allergies No Known Allergies Allergy (Verified 10/27/24 11:06) Tobacco use date assessed: 10/27/24 Dental Screening Dental Screen Date: 10/27/24 Did you have a dental visit in the last 12 months?: No Did you have a dental problem in the last 6 months where you did not have access to dental care?: No HPI HPI Comments History of Present Illness0 Details The patient is a 34 year old with a past medical history of mitral valve disorder/heart murmur, current presenting to [facility] care Following with [facility] keel press operator Dr Hastings at [facility]. Currently 19 weeks . No recent echocardiogram. Denies shortness of breath. Treated for bronchitis in August No shortness of breath ROS CONSTITUTIONAL: Denies weight loss, fever and chills. HEENT: Denies changes in vision and hearing. RESPIRATORY: Denies SOB and cough. CV: Denies palpitations and CP GI: Denies abdominal pain, nausea, vomiting and diarrhea. : Denies dysuria and urinary frequency. MSK: Denies new myalgia and joint pain. SKIN: Denies rash and pruritus. NEUROLOGICAL: Denies headache PSYCHIATRIC: Denies recent changes in mood. PHYSICAL EXAM: GENERAL: Alert and oriented x 3. NAD EYES: EOMI. Anicteric. HENT: Moist mucous membranes. No scleral icterus. No cervical lymphadenopathy. LUNGS: Clear to auscultation bilaterally. CARDIOVASCULAR: Regular rate and rhythm. soft murmur ABDOMEN: Soft, non-tender +bs EXTREMITIES: No edema. Non-tender. SKIN: No rashes or lesions. Warm. NEUROLOGIC: No focal neurological deficits. CN II-XII grossly intact PSYCHIATRIC: Cooperative. Appropriate mood and affect FOR[facility]LY [facility] Medical History Heart murmur Family History (Updated 10/27/24 @ 11:11 by Therese Alvarez CMA) Father HTN (hypertension) Maternal Grandmother Diabetes Brother Asthma Maternal Uncle Substance abuse Social History (Updated 10/27/24 @ 11:16 by Therese Alvarez CMA) Household Members: Spouse Household Members Other:: stepdaughter Housing: House (second floor) Alcohol intake: current Alcohol intake frequency: holidays/special occasions only Patient Tobacco Use Status: Never used Tobacco Tobacco use type: Cigarette e-Cigarette/Vaping Use: Never Used Second Hand Smoke Exposure: No Use of substances other than those prescribed or required for medical reasons: No service: No Current occupational status: unemployed Sexual orientation: Straight/Heterosexual Gender identity: Female Cognitive needs: No Hearing needs: No Vision needs: Yes (may need glasses) Female Reproductive History Menstrual Age of Menarche: 14 Questionnaire PHQ-9 Over the last 2 weeks, how often have you been bothered by any of the following problems? 1. Little interest or pleasure in doing things: more than half the days 2. Feeling down, depressed, or hopeless: several days 3. Trouble falling or staying asleep, or sleeping too much: several days 4. Feeling tired or having little energy: several days 5. Poor appetite or overeating: several days 6. Feeling bad about yourself - or that you are a failure or have let yourself or your family down: several days 7. Trouble concentrating on things, such as reading the newspaper or watching television: not at all 8. Moving or speaking so slowly that other people could have noticed. Or the o pposite - being so fidgety or restless that you have been moving around a lot more than usual: not at all 9. Thoughts that you would be better off or of hurting yourself in some way: not at all Total score: 7 Depression Screening Interpretation: Positive Depression Screening Follow-up: Declines treatment Depression Screening Done: Yes 93569 - PHQ-9 Billing: Yes Source: Developed by Drs. Samir Genao, Anjana Adorno, Felix Loo and colleagues, with an educational ned from [employer]. Thrive Questionnaire Date Thrive assessed: 10/27/24 I am a: Patient What is your living situation today?: I have a steady place to live Within the past 12 months, did the food you bought not last and you didn't have the money to get more?: I choose not to answer this question Within the past 12 months, did you worry whether your food would run out before you got money to buy more?: I choose not to answer this question Do you have trouble paying for medicines?: No Do you have trouble getting transportation to medical appointments?: No Do you have trouble paying your heating and electricity bill?: No Do you have trouble taking care of your child, family member or friend?: No Do you have trouble with day-to-day activities such as bathing, preparing meals, shopping, managing finances, etc.?: No Are you currently unemployed and looking for a job?: Yes Are you interested in more education?: Yes Please select the resources that you would like help with: Transportation Currently or been in a relationship where the following occur: No concerns reported THRIVE Score: 0 AUDIT C Alcohol Use Questionnaire (AUDIT-C) 1. How often do you have a drink containing alcohol?: Never 3. How often do you have six or more drinks on one occasion?: Never Total Score: 0 GEMINI-7 AMB Questionnaire GEMINI-7 Date GEMINI - 7 assessed: 10/27/24 Feeling nervous, anxious, or on edge: 1 = Several days Not being able to stop or control worryin = Several days Worrying too much about different things: 1 = Several days Trouble relaxin = Several days Being so restless that it is hard to sit still: 1 = Several days Becoming easily annoyed or irritable: 1 = Several days Feeling afraid as if something awful might happen: 1 = Several days Total GEMINI-7 score (0-4 normal; 5-9 mild; 10-14 moderate; 15-21 severe): 7 Source: Developed by Drs. Samir Genao, Anjana Adorno, Felix Loo and colleagues, with an educational ned from [employer]. GEMINI-7 Assessment Billing GEMINI-7 Assessment Tool: GEMINI-7 Assessment 86760 Physical exam (Primary Care) Vital Signs: Last Vital Signs Pulse 85 10/27/24 11:14 BP 108/62 10/27/24 11:14 Pulse Ox 99 10/27/24 11:14 Oxygen Delivery Method Room Air 10/27/24 11:14 BMI result Body Mass Index 27.0 Tobacco/Smoking Status: Tobacco use Status Tobacco use date assessed 10/27/24 10/27/24 11:16 Patient Tobacco Use Status Never used Tobacco 10/27/24 11:16 Tobacco use type Cigarette 10/27/24 11:16 e-Cigarette/Vaping Use Never Used 10/27/24 11:16 PHQ-9: PHQ-9 Score PHQ-9: Total score 7 10/27/24 11:17 Depression Screening Interpretation: Positive Depression Screening Follow-up: Declines treatment Thrive Assessment: Date of Thrive Assessment Date Thrive assessed 10/27/24 10/27/24 11:16 Currently or been in a relationship where the following occur: No concerns reported Coding Level of Care Code New Pt Level 4 (28290) Diagnoses Encounter to establish care Z76.89 Mitral valve insufficiency, unspecified etiology I34.0 Cardiac valve disease etiology: etiology unspecified Additional Codes GEMINI-7 Assessment Billing - GEMINI-7 Assessment Tool: GEMINI-7 Assessment 39527 ([id number]) PHQ-9 - 73934 - PHQ-9 Billing: Yes ([id number]) Assessment & Plan Assessment & Plan (1) Encounter to establish care: Code(s): Z76.89 - Persons encountering health services in other specified circumstances Category: Medical Plan: 34 year old to establish care. past medical, surgical, social and family history reviewed History of MV disorder. Echo ordered (2) Mitral valve regurgitation: Code(s): I34.0 - Nonrheumatic mitral (valve) insufficiency Category: Medical Qualifiers: Cardiac valve disease etiology: etiology unspecified Qualified Code(s): I34.0 - Nonrheumatic mitral (valve) insufficiency Plan: echo ordered Orders: Orders CA echo transthoracic complete Today I34.0 - Nonrheumatic mitral (valve) insufficiency, Z3A.01 - Less than 8 weeks gestation of
[2024-10-27 11:14] VITALS: BP 108/62; PULSE 85; O2SAT 99; BMI 27.0
== END 2024-10-27 15:06 | disposition home or self-care (01) ==
PROVIDERS: PCP Internal Medicine; Visit Provider Internal Medicine
DX: Z76.89 Persons encountering health services in other specified circumstances (principal); I34.0 Nonrheumatic mitral (valve) insufficiency

== ENCOUNTER → 2024-10-27 10:45 | Outpatient (BNVA) | payer OTHER, SELFPAY | PROVIDERS: PCP Internal Medicine; Visit Provider Internal Medicine | DX: Z76.89 Persons encountering health services in other specified circumstances (principal); I34.0 Nonrheumatic mitral (valve) insufficiency | CPT/HCPCS: 96127; 99202 ==

== ENCOUNTER → 2024-11-07 13:53 | Outpatient (REF) | payer OTHER, SELFPAY ==
--- NOTE | 2024-11-07 13:56 | CA_ITS ---
Transthoracic Echocardiogram Patient (Last, First, Middle): Alona Chapa, Gender: Female Date of : 1990 Age: 34 Procedure Date: 11/07/2024 Procedure Type: Transthoracic Echocardiogram Location: OP Height: 165.1 cm Weight: 74.84 kg BSA: 1.82 m2 Heart Rate: bpm Air Traffic Coordinator: BONG Referring MD: Lindsey Melara MD Director Emergency Services: Corky Choi MD Symptoms: I34.0 Non Rheumatic Mitral Valve Insufficiency Study Quality: Good ECG Rhythm: Sinus Conclusions: - Normal study Findings Left Ventricle Normal left ventricular size, thickness, and systolic function. The visually estimated ejection fraction is between 60-65%. Diastolic function is normal for age. Right Ventricle Normal right ventricular cavity size and systolic function. Atria Both atria are normal in size. There is no evidence of interatrial shunt. Aortic Valve Normal aortic valve structure and function. There is no aortic valve stenosis. There is no aortic valve regurgitation. Mitral Valve Normal mitral valve structure and function. There is trace mitral valve regurgitation. There is no mitral valve stenosis. Pulmonic Valve The pulmonic valve is likely normal. There is trace pulmonic valve regurgitation. Tricuspid Valve Normal tricuspid valve structure. There is trace tricuspid valve regurgitation. The right ventricular systolic pressure is normal. The right ventricular systolic pressure is 15 mmHg. Normal right atrial pressure. There is no evidence of pulmonary hypertension. Great Vessels All visible segments of the aorta are normal in size. The visualized portions of the pulmonary artery and branches are normal. Venous The inferior vena cava is normal in size and collapses greater than 50% with inspiration. Pericardium/Pleural There is no evidence of pericardial effusion. Prior Study Comparison No prior study available for comparison. Measurements 2D Linear Measurements IVSd: 0.99 0.6-0.9/0.6-1.0 cm LVIDd: 4.81 3.9-5.3/4.2-5.9 cm LVIDd Index: 2.64 2.4-3.2/2.2-3.1 cm/m2 LVIDs: 2.78 2.0-3.6 cm LVPWd: 0.96 0.7-1.1 cm Ao Root: 2.60 2.1-3.5 cm LA Diam: 3.70 2.7-3.8/3.0-4.0 cm LAIDs Index: 2.03 1.5-2.3 cm/m2 LV Mass: 205.96 67-162/88-224 g LV Mass Index: 113.17 43-95/49-115 g/m2 LVOT Diam: 2.10 3.0+(-)1.3 cm 2D Systolic Function EF 4C: 59.50 >55% EF 2C: 58.20 >55% EF BiP: 58.80 >55% Mitral Valve MV Pk E: 0.90 MV PK A: 0.63 MV Decel Time: 261.00 E/A: 1.40 E'Lateral: 18.30 E'Medial: 11.60 E/E' Med: 7.80 E/E' Lat: 4.90 PHT: 76.00 MVA PHT: 2.89 Decel [place]: 3.47 Aortic Valve AoV Pk Ed: 1.36 AoV Pk Grad: 7.00 LVOT LVOT Pk Ed: 1.05 LVOT Mn Ed: 0.64 LVOT VTI: 0.24 LVOT Pk Grad: 4.00 LVOT Mn Grad: 2.00 LVOT Diam: 2.10 LVOT Area: 3.46 Diastolic Function MV Pk E: 0.90 MV Pk A: 0.63 E/A: 1.40 E'Medial: 11.60 E/E' Med: 7.80 E' Laterial: 18.30 E/E' Lat: 4.90 Right Ventricle TAPSE (mm): 28.00 TVS' Ed: 13.00 Tricuspid Valve TR Pk Ed: 1.70 TR Pk Grad: 12.00 RA Press: 3.00 RVSP: 15.00 Great Vessels Aorta Ao Root-2D: 2.60 2.0-3.7 cm Ao Asc: 2.80 2.1-3.4 cm Pulmonary Valve PV Pk Ed: 1.21 Peak PV Grad: 6.00 Updated in Other Vendor System with Status of Final Corky Choi MD electronically signed on 11/08/2024 3:36:05 PM with status of Final
== END ==
LOC: HO.CARD 13:53
PROVIDERS: PCP Internal Medicine; Visit Provider Internal Medicine
DX: I34.0 Nonrheumatic mitral (valve) insufficiency (principal)
CPT/HCPCS: 93306

== ENCOUNTER → 2024-11-07 13:56 | Outpatient (BNV) | payer OTHER, SELFPAY | PROVIDERS: PCP Internal Medicine; Visit Provider Internal Medicine Cardiovascular Disease | DX: I34.0 Nonrheumatic mitral (valve) insufficiency (principal) | CPT/HCPCS: 93306 ==

== ENCOUNTER 2025-01-09 13:23 | Outpatient (AMB) | payer OTHER, SELFPAY ==
--- NOTE | 2025-01-09 13:34 | A.OFFPC_ITS ---
Vital Signs 01/09/25 13:36 Height 5 ft 4 in Weight 175 lb 8 oz BMI 30.1 BP 90/62 Blood Pressure Location Rt brachial Position Sitting Respiration 12 Pulse 88 Pulse Source Pulse Oximeter Pulse Oximetry (%) 97 Oxygen Delivery Method Room Air Intake Visit Reasons: EKG and Assessment Intake Note: Discuss EKG Ammunition Storekeeper Required: Yes Ammunition Storekeeper Language: Director Hospice Operations Name: Genaro [id number] Allergies No Known Allergies Allergy (Verified 01/09/25 13:35) Tobacco use date assessed: 01/09/25 Dental Screening Dental Screen Date: 10/27/24 HPI HPI Comments History of Present Illness Details The patient is a 34 year old female with a past medical history of mitral valve disorder/heart murmur, current presenting.Video crime analyst used. -bilateral arms intermittently go numb. Sometimes happens down to the middle fingers. Is having neck pain which is new. No specific triggering event. -Intermittent shortness of breath. Incre ases with eating and when she exerts herself too much. She is currently . No calf pain, swelling. Had echo 2 months ago -reassuring. Following with [facility]ower [facility] Hastings at [facility]. ROS see HPI PHYSICAL EXAM: GENERAL: Alert and oriented x 3. NAD EYES: EOMI. Anicteric. HENT: Moist mucous membranes. No scleral icterus. No cervical lymphadenopathy. LUNGS: Clear to auscultation bilaterally. CARDIOVASCULAR: Regular rate and rhythm. soft murmur ABDOMEN: Soft, non-tender +bs EXTREMITIES: No edema. Non-tender. SKIN: No rashes or lesions. Warm. NEUROLOGIC: No focal neurological deficits. CN II-XII grossly intact PSYCHIATRIC: Cooperative. Appropriate mood and affect FOR[facility]LY [facility], [facility] Medical History Heart murmur Family History Father HTN (hypertension) Maternal Grandmother Diabetes Brother Asthma Maternal Uncle Substance abuse Social History Household Members: Spouse Household Members Other:: stepdaughter Housing: House (second floor) Alcohol intake: current Alcohol intake frequency: holidays/special occasions only Patient Tobacco Use Status: Never used Tobacco Tobacco use type: Cigarette e-Cigarette/Vaping Use: Never Used Second Hand Smoke Exposure: No service: No Current occupational status: unemployed Sexual orientation: Straight/Heterosexual Gender identity: Female Cognitive needs: No Hearing needs: No Vision needs: Yes (may need glasses) Female Reproductive History Menstrual Age of Menarche: 14 Questionnaire PHQ-9 Over the last 2 weeks, how often have you been bothered by any of the following problems? 1. Little interest or pleasure in doing things: several days 2. Feeling down, depressed, or hopeless: several days 3. Trouble falling or staying asleep, or sleeping too much: several days 4. Feeling tired or having little energy: several days 5. Poor appetite or overeating: several days 6. Feeling bad about yourself - or that you are a failure or have let yourself or your family down: more than half the days 7. Trouble concentrating on things, such as reading the newspaper or watching television: more than half the days 8. Moving or speaking so slowly that other people could have noticed. Or the opposite - being so fidgety or restless that you have been moving around a lot more than usual: nearly every day 9. Thoughts that you would be better off or of hurting yourself in some way: several days Total score: 13 Depression Screening Interpretation: Positive Depression Screening Follow-up: Declines treatment Depression Screening Done: Yes 66508 - PHQ-9 Billing: Yes Source: Developed by Drs. Samir Genao, Anjana Adorno, Felix Loo and colleagues, with an educational ned from [employer]. Thrive Questionnaire Date Thrive assessed: 01/02/25 I am a: Patient What is your living situation today?: I choose not to answer this question Within the past 12 months, did the food you bought not last and you didn't have the money to get more?: I choose not to answer this question Within the past 12 months, did you worry whether your food would run out before you got money to buy more?: I choose not to answer this question Do you have trouble paying for medicines?: No Do you have trouble getting transportation to medical appointments?: No Do you have trouble paying your heating and electricity bill?: No Do you have trouble taking care of your child, family member or friend?: No Do you have trouble with day-to-day activities such as bathing, preparing meals, shopping, managing finances, etc.?: No Are you currently unemployed and looking for a job?: Yes Are you interested in more education?: Yes Please select the resources that you would like help with: Housing/Detention, Food, Transportation and Job search/training Currently or been in a relationship where the following occur: I choose not to answer THRIVE Score: 0 AUDIT C Alcohol Use Questionnaire (AUDIT-C) 1. How often do you have a drink containing alcohol?: Never 3. How often do you have six or more drinks on one occasion?: Never Total Score: 0 GEMINI-7 AMB Questionnaire GEMINI-7 Date GEMINI - 7 assessed: 01/09/25 Feeling nervous, anxious, or on edge: 1 = Several days Not being able to stop or control worryin = Several days Worrying too much about different things: 1 = Several days Trouble relaxin = Several days Being so restless that it is hard to sit still: 1 = Several days Becoming easily annoyed or irritable: 1 = Several days Feeling afraid as if something awful might happen: 1 = Several days Total GEMINI-7 score (0-4 normal; 5-9 mild; 10-14 moderate; 15-21 severe): 7 Source: Developed by Drs. Samir Genao, Anjana Adorno, Felix Loo and colleagues, with an educational ned from [employer]. GEMINI-7 Assessment Billing GEMINI-7 Assessment Tool: GEMINI-7 Assessment 03293 Physical exam (Primary Care) Vital Signs: Last Vital Signs Pulse 88 01/09/25 13:36 Resp 12 01/09/25 13:36 BP 90/62 01/09/25 13:36 Pulse Ox 97 01/09/25 13:36 Oxygen Delivery Method Room Air 01/09/25 13:36 BMI result Body Mass Index 30.1 Tobacco/Smoking Status: Tobacco use Status Tobacco use date assessed 01/09/25 01/09/25 13:39 Patient Tobacco Use Status Never used Tobacco 01/09/25 13:39 Tobacco use type Cigarette 01/09/25 13:39 e-Cigarette/Vaping Use Never Used 01/09/25 13:39 PHQ-9: PHQ-9 Score PHQ-9: Total score 13 01/11/25 13:29 Depression Screening Interpretation: Positive Depression Screening Follow-up: Declines treatment Thrive Assessment: Date of Thrive Assessment Date Thrive assessed 01/02/25 01/09/25 13:39 Currently or been in a relationship where the following occur: I choose not to answer Coding Level of Care Code Est Pt Level 5 (72019) Diagnoses Shortness of breath R06.02 Neuropathy of upper extremity, unspecified laterality G56.90 Laterality: unspecified laterality Additional Codes GEMINI-7 Assessment Billing - GEMINI-7 Assessment Tool: GEMINI-7 Assessment 52705 ([id number]) PHQ-9 - 78169 - PHQ-9 Billing: Yes ([id number]) Time Spent (min) 55 Assessment & Plan Assessment & Plan (1) Shortness of breath: Code(s): R06.02 - Shortness of breath Category: Medical Plan: ekg reassuring. vitals reassuring. likely secondary to normal physiologic changes of (2) Upper extremity neuropathy: Code(s): G56.90 - Unspecified mononeuropathy of unspecified upper limb Category: Medical Qualifiers: Laterality: unspecified laterality Qualified Code(s): G56.90 - U nspecified mononeuropathy of unspecified upper limb Plan: bilateral, some neck pain. Discussed stretching, muscle relaxer at night as needed for moderate/severe symptoms Orders: Orders IRON PROFILE 01/09/25 G56.90 - Unspecified mononeuropathy of unspecified upper limb, R00.0 - Tachycardia, unspecified, R06.02 - Shortness of breath Comprehensive Met. Panel 01/09/25 G56.90 - Unspecified mononeuropathy of uns pecified upper limb, R00.0 - Tachycardia, unspecified, R06.02 - Shortness of breath Vitamin B12 and Folate 01/09/25 G56.90 - Unspecified mononeuropathy of unspecified upper limb Complete Blood Count Auto Diff 01/09/25 G56.90 - Unspecified mononeuropathy of unspecified upper limb, R00.0 - Tachycardia, unspecified, R06.02 - Shortness of breath TSH reflex Free T4 01/09/25 G56.90 - Unspecified mononeuropathy of unspecified upper limb, R00.0 - Tachycardia, unspecified, R06.02 - Shortness of breath Hemoglobin A1c 01/09/25 G56.90 - Unspecified mononeuropathy of unspecified upper limb
--- OUTSIDE RECORDS SUMMARY | 2025-01-09 13:35 | XMS_ITS ---
Author Organization [facility] Address [address] [place] [id number] Care Team Providers Care Relay Dispatcher Name Role Phone [facility] Primary Care Provi ciaran Unavailable [facility], [facility] Unavailable [phone] Iris Bosch Unavailable [phone] REASON FOR VISIT Call [employer] to change MH Limited to MHSTD / Pregenate Encounters Encounter Location Date Provider Diagnosis [address] [phone] 08/12/2024 Iris Bosch Plan Of Treatment No Information Progress Notes * Alona HOFFMANNDOB:[birth year] (34 yo F)Acc No.[id number]:08/12/2024 Case Management New Patient:?Lili HOFFMANN stacy Provider:?Iris Bosch :1990???Age:34 Y???Sex:Female D ate:08/12/2024 Address:[address] [place], [place] [id number] Pcp:[facility] Rebekah ntjuanita Subjective: * Chief Complaints: * ???1. Call [employer] to ch sergio MH Limited to MHSTD / Pregenate. * HPI: ???Social Service:?Action Taken?[employer]? Called [employer] with client and changed MH Limited to MHSTD due to client receiving a Social Security number. MHSTD will be updated within 48 hours. 08/12/24 gd2.? Objective: * Vitals:? Assessment: Plan: * Treatment: * Billing Information: * Visit Code:? * Procedure Codes:? Care Plan Details* * Sign off status: Completed true * Provider:Beto Bosch Date:?08/12/2024 Generated for Galina walton/Cheng/Dian on:?01/09/2025 01:35 PM EST History and Physical Notes * HPI (History of Present Illness) Category Sub-Category Detail Notes Social Service Action Taken [facility] : Called [facility] ealt with client and changed MH Limited to MHSTD due to client receiving a Social Security number. MHSTD will be updated within 48 hours. 08/12/24 gd2
--- OUTSIDE RECORDS SUMMARY | 2025-01-09 13:35 | XMS_ITS | Patient Health Record ---
Author Organization [facility] Address [address], [place] [phone] Care Team Providers Care Furnace Clerk Name Role Phone [facility] Care Provi ciaran Unavailable [facility], [facility] Unavailable [phone] Iris Bosch Unavailable [phone] Reason For Referral No Information Encounters Encounter Location Date Provider Diagnosis [facility] [address] [place] [address] 01/17/2024 Iris Bosch [facility] [address], [place] [phone] 08/12/2024 Iris Bosch Plan Of Treatment No Information Insurance Providers Payer Name Payer Address Payer Phone Subscriber Number Group Number Insured Name Patient Relationship to Insured Coverage Start Date Coverage End Date [place] [address] [place] [phone] [id number] Alona Chapa Self - patient is the insured
--- OUTSIDE RECORDS SUMMARY | 2025-01-09 13:35 | XMS_ITS ---
Author Organization [facility] Address [address] [place], [place] [phone] Care Team Providers Care Medical Biller Coder Name Role Phone [facility] Primary Care Provi ciaran Unavailable [facility], [facility] Unavailable [phone] Iris Bosch Unavailable [phone] REASON FOR VISIT Apply for [employer] Insurance Encounters Encounter Location Date Provider Diagnosis [facility] [address] [place] [address] 01/17/2024 Iris Bosch Plan Of Treatment No Information Progress Notes * Alona HOFFMANNDOB:[birth year] (33 yo F)Acc No.[id number]:01/17/2024 Case Management New Patient:?Leif NigelTorigayathri stacy Provider:?Iris Bosch :1990???Age:33 Y???Sex:Female D ate:01/17/2024 Address:[address] [place], [place] [id number] Pcp:[facility] nter Subjective: * Chief Complaints: * ???1. Apply for [facility] Insurance. * HPI: ???Social Service:?Action Taken?[employer]? [employer] paper application was completed with client and faxed over to [facility]ment [facility]. 01/17/24 gd2.? Objective: Assessment: Plan: * Treatment: * Images: Billing Information: * Visit Code:? * Procedure Codes:? Care Plan Details* * Sign off status: Completed true * Provider:Beto Bosch Date:?01/17/2024 Generated for Galina walton/Faxing/eTransmitting on:?01/09/2025 01:35 PM EST History and Physical Notes * HPI (History of Present Illness) Category Sub-Category Detail Notes Social Service Action Taken [facility] : [employer] p aper application was completed with client and faxed over to Enrollment [facility]. 01/17/24 gd2
[2025-01-09 13:36] VITALS: BP 90/62; PULSE 88; RESP 12; O2SAT 97; BMI 30.1
== END 2025-01-09 14:19 | disposition home or self-care (01) ==
PROVIDERS: PCP Internal Medicine; Visit Provider Internal Medicine
DX: R06.02 Shortness of breath (principal); G56.90 Unspecified mononeuropathy of unspecified upper limb

== ENCOUNTER → 2025-01-09 13:23 | Outpatient (BNVA) | payer OTHER, SELFPAY | PROVIDERS: PCP Internal Medicine; Visit Provider Internal Medicine | DX: G56.90 Unspecified mononeuropathy of unspecified upper limb (principal); R06.02 Shortness of breath; R00.0 Tachycardia, unspecified | CPT/HCPCS: 96127; 99212 ==

== ENCOUNTER 2025-01-09 14:21 | Outpatient (REF) | payer OTHER, SELFPAY ==
[2025-01-09 17:55] LABS: MANUAL DIFF FLAG NO
[2025-01-09 17:58] LABS: Basophils Percent Auto 0.4 % (0-2); Eosinophils Absolute Auto 0.1 X10*3/uL (0.0-0.4); Hematocrit 33.9 % (37.0-47.0); Hemoglobin 11.4 g/dl (12.0-16.0); Imm Gran Abs Auto 0.05 X10*3/uL (0.00-0.03); Imm Gran Pct Auto 0.7 % (0.0-0.4); Lymphocytes Absolute Auto 1.6 X10*3/uL (1.2-4.9); Lymphocytes Percent Auto 23.3 % (20-40); Mean Corpuscular HGB Conc 33.6 g/dl (31.0-35.0); Mean Corpuscular Hemoglobin 32.2 pg (27.0-33.0); Mean Corpuscular Volume 95.8 fL (80.0-98.0); Mean Platelet Volume 10.3 fL (9.4-12.3); Monocytes Absolute Auto 0.4 X10*3/uL (0.1-1.2); Monocytes Percent Auto 6.3 % (2-11); Neutrophils Absolute Auto 4.6 x10*3/uL (2.0-8.3); Neutrophils Percent Auto 68.3 % (45-73); Platelet Count 230 X10*3/uL (160-400); Red Blood Count 3.54 X10*6/uL (4.20-5.50); Red Cell Distribution Width 13.9 % (11.0-16.0); White Blood Count 6.7 X10*3/uL (4.8-10.8)
[2025-01-09 18:10] LABS: Estimated Average Glucose 94 mg/dL; Hemoglobin A1C 89.3996 umol/L; Hemoglobin A1c % 4.9 % (<6.0); Total Hemoglobin (HGBA1C) 3000.2146 umol/L
[2025-01-09 18:20] LABS: Alanine Aminotransferase 9 U/L (0-31); Albumin Level 3.1 g/dL (3.5-5.0); Alkaline Phosphatase 114 U/L (39-117); Anion Gap 11 (12-20); Aspartate Amino Transferase 21 U/L (5-31); Bilirubin Total 0.2 mg/dL (0.0-1.0); Blood Urea Nitrogen 10 mg/dL (9-16); Calcium 8.7 mg/dL (8.4-10.2); Carbon Dioxide 21 mmol/L (22-29); Chloride 107 mmol/L (96-108); Estimated Glomerular Filt Rate > 60; Glucose Random 85 mg/dL (60-115); Iron 82 mcg/dL (30-160); Percent Iron Saturation 20 % (15-50); Potassium 3.7 mmol/L (3.3-5.1); Sodium 135 mmol/L (135-145); Total Iron Binding Capacity 413 mcg/dL (228-428); Total Protein 6.7 g/dL (6.5-8.0); Unsaturated Iron Binding 331 ug/dL
[2025-01-09 18:37] LABS: TSH reflex Free T4 0.98 uIU/mL (0.32-4.0)
[2025-01-09 18:42] LABS: Folate 16.6 ng/mL (> or = 4.0); Vitamin B12 221 pg/mL (200-900)
== END 2025-01-09 14:22 | disposition home or self-care (01) ==
LOC: HO.WFDLDS 14:21
PROVIDERS: Visit Provider Internal Medicine
DX: R06.02 Shortness of breath (principal); R00.0 Tachycardia, unspecified; G56.90 Unspecified mononeuropathy of unspecified upper limb
CPT/HCPCS: 36415; 80053; 82607; 82746; 83036; 83540; 84443; 85025

== ENCOUNTER 2025-02-02 19:53 | Emergency (ER) | payer OTHER, SELFPAY ==
--- NOTE | 2025-02-02 20:21 | ED_ITS ---
HPI - Abdominal Pain General Chief Complaint: General Medical Stated Complaint: abd pain,headache, edc 03/07 Time Seen by Provider: 02/02/25 20:33 Source: patient Mode of arrival: ambulatory Limitations: no limitations History of Present Illness ED Provider: Dr. Saba Hylton HPI narrative: Patient comes to the emergency room stating that she is ?8 months? . Patient states that she has been having abdominal pain, nausea headache generalized malaise. Patient states that she has a OBGYN care in [place]. Patient states that this is her 2nd , had a previous spontaneous miscarriage. Patient states that she has been having cramp like sensations intermittently throughout the day. Patient states that she called her clinic and they asked her to come to the emergency room to get evaluated. Patient denies any vaginal bleeding or spotting. Patient states that she has a clear discharge that is new Related Data Previous Rx's ?Medication ?Instructions ?Recorded vitamin-ferrous fumarate 1 tab PO DAILY #30 tabs 07/07/24 28 mg iron-folic acid 800 mcg tablet vitamins no.144-folic 2 tab PO DAILY 90 days #180 tabs 07/10/24 acid 400 mcg chewable tablet Allergies Allergy/AdvReac Type Severity Reaction Status Date / Time No Known Allergies Allergy Verified 02/02/25 20:30 Review of Systems Review of Systems Constitutional : No Weight loss, No Fever, No Chills, No Night Sweats, No Fatigue, No Malaise ENT/Mouth : No Hearing loss, No Ear Pain, No Nasal Congestion, No Sinus Pain, No Hoarseness, No sore throat, No Rhinorrhea, No Swallowing Difficulty Eyes: No Eye Pain, No Swelling, No Redness, No Foreign Body, No Discharge, No Vision Changes Cardiovascular : No Chest Pain, No SOB, No Dyspnea on Exertion, No Orthopnea, No Edema, No Palpitations Respiratory : No Cough, No Sputum, No Wheezing, No Smoke Exposure, No Dyspnea Gastrointestinal : Patient complaining of nausea No Vomiting, No Diarrhea, No Constipation, No abdominal Pain, No Hematochezia, No Melena Genitourinary : Denies vaginal bleeding or spotting, complaining of intermittent cramping/contraction like pain in lower abdomen Musculoskeletal : No joint pain, No Myalgias, No Joint Swelling Skin : No Skin Lesions, No rash Neuro : No Weakness, No Numbness, No Paresthesias, No Loss of Consciousness, No Dizziness, complaining of Headache Psych : Complaining of anxiety, No Depression, No SI/HI/AH/VH, No Social Issues, Heme/Lymph: No Bruising, No Bleeding,No Lymphadenopathy Endocrine : No Polyuria, No Polydipsia, No Temperature Intolerance [facility] Past Medical History Medical History Heart murmur Family History Family History Father HTN (hypertension) Maternal Grandmother Diabetes Brother Asthma Maternal Uncle Substance abuse Social History Social History Household Members: Spouse Household Members Other:: stepdaughter Housing: House (second floor) Alcohol intake: current Alcohol intake frequency: holidays/special occasions only Patient Tobacco Use Status: Never used Tobacco Tobacco use type: Cigarette e-Cigarette/Vaping Use: Never Used Second Hand Smoke Exposure: No Do you have a plan to hurt others: No Plan service: No Current occupational status: unemployed Sexual orientation: Straight/Heterosexual Gender identity: Female Cognitive needs: No Hearing needs: No Vision needs: Yes (may need glasses) Physical Exam ED Vital Signs: Vital Signs - 24 hr 02/02/25 20:27 Temperature 98.3 F Pulse Rate 102 H Respiratory Rate 16 Blood Pressure 119/74 Pulse Oximetry 99 Oxygen Delivery Method Room Air BMI result Body Mass Index 28.2 Const Other: Appearance: Alert. Oriented X3. No acute distress. Eyes: Pupils equal, round and reactive to light. ENT: Pharynx normal. Neck: Normal inspection. Neck supple. No lymph nodes noted. No crepitus CVS: Normal heart rate and rhythm. Pulses normal. Normal S1 and S2 Respiratory: No respiratory distress. Breath sounds normal. No Wheezing. No rales Abdomen: Soft and nontender. No rigidity. Gravid uterus well above the umbilicus Pelvic exam: (patient eloped before he could be done) Skin: Skin warm and dry. Normal skin color. Normal skin turgor. Extremities: No lower extremity edema. No Lacerations. No Rash Neuro: Oriented X 3. No motor deficit. No sensory deficit. Moving all extremities. No slurred speech. CN 2 through 12 grossly intact Psych: calm, cooperative, normal affect Course Course Course Narrative: This is a Rapid Medical Examination (RME) performed by Wendi Berrios PA-C in triage. Full HPI, ROS, assessment and treatment plan per primary provider in the Main ED. 34 yo 8 mo ASHLEY 03/07/25 here w/ intermittent abdominal cramping, nausea, headache since 0900 this morning. cramping comes/ goes. having white v aginal discharge. follows w/ OB in [place]. states bladder feels full Patient immediately brought back to ED bed Plan: labs/ viral swabs Medical Decision Making Medical Decision Making MDM Narrative: I discussed with the patient that we need to get labs work done, insert an IV line, get fluids, nausea medication, pain meds and do a cervical exam to make sure that the cervix is not open. Also patient complaining of cervical discharge, patient aware that we will do serology swabs for STDs, bacterial vaginosis/Trichomonas. I also discussed with the patient that we will do a bedside ultrasound to check for activity and cardiac activity. Also, I discussed with the patient that she will need to be transferred to [facility] for nonstress test. When I went to get the ultrasound for a bedside ultrasound in the tech went to get the materials for the pelvic exam, we noted the patient was not in the room. We checked in all the bathrooms, patient was not there. We called the patient to herself own, patient states that she left the hospital, patient states that she prefers to wait for her PCP tomorrow. Patient states that she has no ride from [place] if we would transfer. I asked the patient to come back to the emergency department for evaluation. I discussed with the patient that we need to rule out preeclampsia, infection , labor, or any abnormality with the fetus. Discussed with the patient that we do not have any information regarding her status at this time. She may have a life- threatening condition for her and the or the baby. I discussed with the patient that we can figure out how to help her with the transfer. However, patient states that she is feeling better now and does not want to come back to the ED, verbalize that she understands the above-mentioned and states that if anything changes she will return to the emergency room. Otherwise she will follow-up tomorrow with her OBGYN. Critical Care Time Critical Care Time Critical Care Time: Yes Total Critical Care Time: 30 Attestation: Please follow-up with your primary care physician tomorrow. If you have any worsening or new symptoms, please return to the emergency room or call 911 Discharge Plan Discharge Clinical Impression: Abdominal cramping affecting , Nausea, Headache Patient Disposition: Left W/O Completing Treatment Prescriptions: No Action no.144-folic acid 400 mcg tablet,chewable 2 tab PO DAILY 90 Days Qty: 180 1RF vit-iron fum-folic ac 28 mg iron- 800 mcg tablet 1 tab PO DAILY Qty: 30 0RF Print Language: Swiss
[2025-02-02 20:27] VITALS: BP 119/74; PULSE 102; RESP 16; TEMP 36.8; O2SAT 99; BMI 28.2
--- NOTE | 2025-02-02 21:02 | PC.NURSE ---
this RN arrives to pt's room to start assessment, give meds and start an IV, no pt was not in the room, searched ED. pt not found, called pt's phone. she states that she left the ED and she will wait for her doctor's appointment tomorrow to be see. MD Hylton spoke with pt on the phone as well to reiterate the importance of labs and being seen in the ED, pt refused
--- NOTE | 2025-02-02 21:03 | PC.NURSE ---
RN and Tech went into room to draw labs and set up pelvic exam per MD request. pt found to not be in room. This RN called patient private cell phone to ask if she left the department. pt is british speaking only, MD Hylton spoke with the patient on the phone and patient said that she has an OB appt in the morning that she is going to attend instead. She was informed that if her situation changes or anything worsens then she should seek attention at [facility]. pt agreeable on phone with
== END 2025-02-02 21:17 | disposition left against medical advice (07) ==
LOC: HO.ED 21:18
PROVIDERS: Emergency Provider Emergency Medicine; PCP Internal Medicine
DX: O26.899 Other specified pregnancy related conditions, unspecified trimester (principal); R10.9 Unspecified abdominal pain; R11.0 Nausea; R51.9 Headache, unspecified; Z3A.00 Weeks of gestation of pregnancy not specified
CPT/HCPCS: 99281

== ENCOUNTER 2025-04-02 09:49 | Outpatient (AMB) | payer OTHER, SELFPAY ==
--- NOTE | 2025-04-02 09:58 | MHC.PC.OV ---
Vital Signs 04/02/25 10:07 Height 5 ft 5 in Weight 157 lb 4 oz BMI 26.2 BP 112/68 Blood Pressure Location Lt brachial Position Sitting Pulse 94 Pulse Source Pulse Oximeter Temp 98.6 F Temp Source Temporal Artery Scan Pulse Oximetry (%) 98 Oxygen Delivery Method Room Air Intake Visit Reasons: CPE /LABS Intake Note: Alona presents in the office today for her annual physical and to go over her labs. Allergies No Known Allergies Allergy (Verified 04/02/25 10:00) Tobacco use date assessed: 04/02/25 Dental Screening Dental Screen Date: 04/02/25 Did you have a dental visit in the last 12 months?: Yes Did you have a dental problem in the last 6 months where you did not have access to dental care?: No Was dental information given to patient?: Patient has dentist HPI HPI Comments History of Present Illness Details 34-year-old female with past medical history of mitral valve regurgitation presents for a physical exam. She is a patient of Dr. Melara. Telugu video electric tripper machine operator used. Patient recently went into the hospital to give to her 1st child. Her water broke. They were planning on vaginal delivery, but she was examined and found to have suspected genital herpes outbreak. They had to switch to an emergency . It was extremely stressful for the patient. She has no history of genital herpes or prior outbreaks. Her does not have a history of this either. Patient says they did a swab which confirmed genital herpes and so she had to stay in the hospital with her infant for 2 weeks so they could monitor the baby and test for herpes. She was treated with Valtrex which she completed. Her baby is doing well. She is processing the diagnosis. Her is doing the same. He is supportive. She has a therapist, and she says she is doing okay now. I asked about her Tdap status. Patient says she was given an immunization during , and she thinks it was Tdap. Gynecology is [facility] in [place]. ROS: Constitutional: No unexplained weight loss, fever, chills, fatigue or night sweats. Eyes: No vision changes, blurry vision, double vision, eye pain, eye redness, eye discharge. ENT: No hearing loss, sneezing, congestion, runny nose or sore throat. Respiratory: No shortness of breath, cough or sputum production. Cardiovascular: No chest pain, chest pressure or chest discomfort. No palpitations or pedal edema. Gastrointestinal: No anorexia, nausea, vomiting or diarrhea. no blood in stool. Mild discomfort around the scar. Genitourinary: No dysuria, hematuria, urinary frequency. Neurologic: No headache, dizziness, syncope, unilateral weakness, ataxia, numbness or tingling in the extremities. Musculoskeletal: No muscle pain, back pain, joint pain or swelling. Hematologic/Lymphatics: No bleeding or bruising. No painful lymph nodes. Skin: Genital herpes rash resolved. Endocrine: No cold or heat intolerance. No polyuria or polydipsia. Psychiatric: No depression or anxiety. No SI/HI. Physical exam: Constitutional: Alert, in no distress. Head: Normocephalic. Eyes: Pupils are equal, round and reactive to light. Extraocular muscles intact. Ear, Nose and Throat: Canals clear. TMs normal. Normal nasal mucosa. No nasal discharge. No oral lesions. Neck: Supple, Full range of motion. No lymphadenopathy. No palpable thyroid masses. Respiratory: Clear to auscultation. Cardiovascular: S1 S2 regular. No murmurs. Gastrointestinal: Abdomen soft, non-tender, non-distended. Normal bowel sounds. No palpable masses. Genitourinary: No costovertebral angle tenderness. Neurologic: No focal neurological deficits. Symmetric patellar reflexes. Moves all extremities spontaneously. Sensation intact bilaterally. Skin: Steri-Strips placed over scar from on the abdomen. No wound dehiscence, discharge, erythema, swelling. Musculoskeletal: No gross deformities. Normal range of motion. Extremities: Warm and well perfused. No clubbing, cyanosis or edema. Intact peripheral pulses. Psychiatric: Normal mood and affect [facility] Medical History (Updated 04/03/25 @ 16:50 by ELLIOTT Carlson) Routine physical examination Genital herpes Heart murmur Family History Father HTN (hypertension) Maternal Grandmother Diabetes Brother Asthma Maternal Uncle Substance abuse Social History (Updated 04/02/25 @ 10:03 by Zari Granado MA) Household Members: Spouse Household Members Other:: stepdaughter Housing: House (second floor) Alcohol intake: current Alcohol intake frequency: holidays/special occasions only Patient Tobacco Use Status: Never used Tobacco Tobacco use type: Cigarette e-Cigarette/Vaping Use: Never Used Second Hand Smoke Exposure: No service: No Current occupational status: unemployed Sexual orientation: Straight/Heterosexual Gender identity: Female Cognitive needs: No Hearing needs: No Vision needs: Yes (may need glasses) Female Reproductive History Menstrual Age of Menarche: 14 Questionnaire PHQ-9 Over the last 2 weeks, how often have you been bothered by any of the following problems? 1. Little interest or pleasure in doing things: not at all 2. Feeling down, depressed, or hopeless: not at all 3. Trouble falling or staying asleep, or sleeping too much: several days 4. Feeling tired or having little energy: several days 5. Poor appetite or overeating: not at all 6. Feeling bad about yourself - or that you are a failure or have let yourself or your family down: not at all 7. Trouble concentrating on things, such as reading the newspaper or watching television: not at all 8. Moving or speaking so slowly that other people could have noticed. Or the opposite - being so fidgety or restless that you have been moving around a lot more than usual: not at all 9. Thoughts that you would be better off or of hurting yourself in some way: not at all Total score: 2 Depression Screening Interpretation: Negative Depression Screening Done: Yes 09301 - PHQ-9 Billing: Patient declined-do not bill Source: Developed by Drs. Samir Genao, Anjana Adorno, Felix Loo and colleagues, with an educational ned from [employer]. Thrive Questionnaire Date Thrive assessed: 04/02/25 I am a: Patient What is your living situation today?: I choose not to answer this question Within the past 12 months, did the food you bought not last and you didn't have the money to get more?: I choose not to answer this question Within the past 12 months, did you worry whether your food would run out before you got money to buy more?: I choose not to answer this question Do you have trouble paying for medicines?: No Do you have trouble getting transportation to medical appointments?: No Do you have trouble paying your heating and electricity bill?: No Do you have trouble taking care of your child, family member or friend?: No Do you have trouble with day-to-day activities such as bathing, preparing meals, shopping, managing finances, etc.?: No Are you currently unemployed and looking for a job?: Yes Are you interested in more education?: Yes Currently or been in a relationship where the following occur: I choose not to answer THRIVE Score: 0 AUDIT C Alcohol Use Questionnaire (AUDIT-C) 1. How often do you have a drink containing alcohol?: Monthly or less 2. How many drinks containing alcohol do you have on a typical day when you are drinking?: 1 or 2 3. How often do you have six or more drinks on one occasion?: Never Total Score: 1 Score Reviewed/Action Taken: No GEMINI-7 AMB Questionnaire GEMINI-7 Date GEMINI - 7 assessed: 04/02/25 Feeling nervous, anxious, or on edge: 1 = Several days Not being able to stop or control worryin = Several days Worrying too much about different things: 1 = Several days Trouble relaxin = Not at all Being so restless that it is hard to sit still: 0 = Not at all Becoming easily annoyed or irritable: 0 = Not at all Feeling afraid as if something awful might happen: 0 = Not at all Total GEMINI-7 score (0-4 normal; 5-9 mild; 10-14 moderate; 15-21 severe): 3 Source: Developed by Drs. Samir Genao, Anjana Adorno, Felix Loo and colleagues, with an educational ned from [employer]. GEMINI-7 Assessment Billing GEMINI-7 Assessment Tool: GEMINI-7 Assessment 14449 Physical exam (Primary Care) Vital Signs: Last Vital Signs Temp 98.6 F 04/02/25 10:07 Pulse 94 04/02/25 10:07 BP 112/68 04/02/25 10:07 Pulse Ox 98 04/02/25 10:07 Oxygen Delivery Method Room Air 04/02/25 10:07 BMI result Body Mass Index 26.2 Tobacco/Smoking Status: Tobacco use Status Tobacco use date assessed 04/02/25 04/02/25 10:12 Patient Tobacco Use Status Never used Tobacco 04/02/25 10:03 Tobacco use type Cigarette 04/02/25 10:03 e-Cigarette/Vaping Use Never Used 04/02/25 10:03 PHQ-9: PHQ-9 Score PHQ-9: Total score 2 04/02/25 10:35 Depression Screening Interpretation: Negative Thrive Assessment: Date of Thrive Assessment Date Thrive assessed 04/02/25 04/02/25 10:12 Currently or been in a relationship where the following occur: I choose not to answer Coding Level of Care Code Est Pt Prev Care 18-39y([id number]) Diagnoses Genital herpes A60.00 Routine physical examination Z00.00 Additional Codes GEMINI-7 Assessment Billing - GEMINI-7 Assessment Tool: GEMINI-7 Assessment 83162 ([id number]) Assessment & Plan Assessment & Plan (1) Genital herpes: Code(s): A60.00 - Herpesviral infection of urogenital system, unspecified Category: Medical Plan: I spent time today reviewing the diagnosis with the patient and how genital herpes is contracted. Her is going to pursue an appointment with his primary care provider for a similar conversation and to review testing available. The outbreak resolved on Valtrex. We discussed if she has recurrent outbreak she should contact the office or her speech writer for Valtrex, and if she has frequent outbreaks she can consider suppressive dosing. She would like to have testing for STIs which I offered today. Orders placed. (2) Routine physical examination: Code(s): Z00.00 - Encounter for general adult medical examination without abnormal findings Category: Medical Plan: Patient is seen today for a routine physical. As part of this visit we reviewed the following issues, which are considered and essential part of preventative health in this age group: - Breast Cancer screening - Annual Associate Data Scientist exam - Blood pressure screening - Cholesterol screening - Osteoporosis prevention including calcium/vitamin D intake, weight bearing exercise & smoking cessation - Nutritional and exercise counseling - Counseling of injury prevention including fire prevention, smoke alarms and seat belt usage - Screening for depression - Prevention of and/or testing for infectious diseases - Education about skin cancer - Recommendations about immunizations - Recommendation of an eye exam - Screening for substance abuse Plan Return for physical in 1 year. Orders: Orders Syphilis Screen 04/02/25 R06.02 - Shortness of breath, Z20.2 - Contact with and (suspected) exposure to infections with a predominantly sexual mode of transmission Lipid Panel 04/02/25 E78.5 - Hyperlipidemia, unspecified, R06.02 - Shortness of breath Hepatitis C Antibody 04/02/25 R06.02 - Shortness of breath, Z20.2 - Contact with and (suspected) exposure to infections with a predominantly sexual mode of transmission HIV Ab/Ag 04/02/25 R06.02 - Shortness of breath, Z20.2 - Contact with and (suspected) exposure to infections with a predominantly sexual mode of transmission CT NG by PCR 04/02/25 Z20.2 - Contact with and (suspected) exposure to infections with a predominantly sexual mode of transmission
[2025-04-02 10:07] VITALS: BP 112/68; PULSE 94; TEMP 37; O2SAT 98; BMI 26.2
--- OUTSIDE RECORDS SUMMARY | 2025-04-02 10:41 | XMS_ITS | Patient Health Record ---
Author Organization [facility] Address [address], [place] [id number] Care Team Providers Care Nurse Intern Name Role Phone [facility] Provi ciaran Unavailable [facility] Unavailable [phone] Iris Bosch Unavailable [phone] Reason For Referral No Information Encounters Encounter Location Date Provider Diagnosis [facility] [address], [place] [id number] 08/12/2024 Iris Bosch Plan Of Treatment No Information Insurance Providers Payer Name Payer Address Payer Phone Subscriber Number Group Number Insured Name Patient Relationship to Insured Coverage Start Date Coverage End Date [place] [address] [place] [address] [id number] Alona Chapa Self - patient is the insured 4
== END 2025-04-02 11:05 | disposition home or self-care (01) ==
LOC: HO.HMCFM 09:50
PROVIDERS: PCP Internal Medicine; Visit Provider Physician Assistant Medical
DX: A60.00 Herpesviral infection of urogenital system, unspecified (principal); Z00.00 Encounter for general adult medical examination without abnormal findings

== ENCOUNTER → 2025-04-02 09:49 | Outpatient (BNVA) | payer OTHER, SELFPAY | PROVIDERS: PCP Internal Medicine; Visit Provider Physician Assistant Medical | DX: Z00.00 Encounter for general adult medical examination without abnormal findings (principal); A60.00 Herpesviral infection of urogenital system, unspecified; R06.02 Shortness of breath; E78.5 Hyperlipidemia, unspecified; Z20.2 Contact with and (suspected) exposure to infections with a predominantly sexual mode of transmission | CPT/HCPCS: 96127; 99395 ==

== ENCOUNTER 2025-04-02 11:07 | Outpatient (REF) | payer OTHER, SELFPAY ==
[2025-04-02 14:28] LABS: Cholesterol 228 mg/dL (<200); HDL Cholesterol 58 mg/dL (>40); LDL Cholesterol Calculated 146 mg/dL (<100); Triglycerides 123 mg/dL (<150)
[2025-04-02 18:49] LABS: CT PCR NOT DETECTED (Not Detect.); NG PCR NOT DETECTED (Not Detect.)
[2025-04-03 07:56] LABS: HIV AB/AG Nonreactive (Nonreactive); HIV Num 1 0.07 S/CO (0.00-0.99); ~HepC Num1 0.17 S/CO (0.00-0.79); ~Hepatitis C Antibody Nonreactive (Nonreactive)
[2025-04-03 08:00] LABS: Syphilis Screen Nonreactive (Nonreactive)
== END 2025-04-02 11:08 | disposition home or self-care (01) ==
LOC: HO.WFDLDS 11:07
PROVIDERS: Visit Provider Physician Assistant Medical
DX: E78.5 Hyperlipidemia, unspecified (principal); R06.02 Shortness of breath; Z20.2 Contact with and (suspected) exposure to infections with a predominantly sexual mode of transmission
CPT/HCPCS: 36415; 80061; 86780; 86803; 87389; 87491; 87591